=== PATIENT | male | born 1955 | race African-American/Black ===

== ENCOUNTER 2016-09-07 09:59 | Emergency (ER) | payer OTHER ==
[~2016-09-07] VITALS: Ht 188 cm; Wt 133.8 kg
[~2016-09-07 09:59] MED LIST: ASPI81TA85 PO; ATOR1TAB18 PO; DULO30CA PO; INSUHUMDS SC; Insulin SC; LISI10TA4 PO
[2016-09-07] MEDS ORDERED: ACETAMINOPHEN 325 MG TAB PO ONE (11:30)
[2016-09-07] MEDS ORDERED: NORCOTAB PO (12:36)
[2016-09-07] MEDS ORDERED: NORCO 5/325MG TABLET (BULK FOR ED) PO ONE (12:45)
[2016-09-07 13:08] VITALS: BP 133/62
--- NOTE | 2016-09-07 13:22 | REP ---
Right hip: Two views. History: Acute hip pain. Comparison pelvic view is from April 07, 2013. Findings: The right femoral head is smooth and rounded. There is some inferior acetabular spurring indicating mild right hip osteoarthritis. Bones, joints, and soft tissues are otherwise unremarkable. No acute abnormality seen. Impression: Mild acetabular spurring consistent with osteoarthritis. No acute abnormality. Signed by Tony Demarco MD 09/07/2016 01:26 P
== END 2016-09-07 13:11 | disposition home or self-care (01) ==
LOC: EDBD 09:59 → M ED 12:13
DX: M25.551 Pain in right hip (principal); E11.40 Type 2 diabetes mellitus with diabetic neuropathy, unspecified; I10 Essential (primary) hypertension; E66.9 Obesity, unspecified; G89.29 Other chronic pain; M54.5 Low back pain; M19.90 Unspecified osteoarthritis, unspecified site; Z82.49 Family history of ischemic heart disease and other diseases of the circulatory system; Z83.49 Family history of other endocrine, nutritional and metabolic diseases; Z82.3 Family history of stroke; Z79.82 Long term (current) use of aspirin; Z79.4 Long term (current) use of insulin; Z79.899 Other long term (current) drug therapy

== ENCOUNTER → 2016-10-04 | Outpatient (REF) | payer OTHER ==
[~2016-10-04] MED LIST changes: +NORCOTAB PO
[2016-10-04 14:46] LABS: ANION GAP 7 MEQ/L (8-16); BLOOD UREA NITROGEN 21 MG/DL (7-18); CALCIUM LEVEL 9.1 MG/DL (8.8-10.2); CARBON DIOXIDE LEVEL 26 MEQ/L (21-32); CHLORIDE LEVEL 109 MEQ/L (98-107); CREATININE FOR GFR 1.33 MG/DL (0.70-1.30); GLOMERULAR FILTRATION RATE > 60.0 (>49); GLUCOSE, FASTING 94 MG/DL (80-110); POTASSIUM SERUM 4.3 MEQ/L (3.5-5.1); SODIUM LEVEL 142 MEQ/L (136-145)
== END ==
LOC: M LAB REF 13:20
PROVIDERS: ATTEND Nurse Practitioner Family
DX: E11.9 Type 2 diabetes mellitus without complications (principal)

== ENCOUNTER 2016-10-11 21:12 | Emergency (ER) | payer OTHER ==
[~2016-10-11] VITALS: Ht 188 cm; Wt 138.3 kg
[2016-10-11] MEDS ORDERED: TETANUS/DIPHTHERIA TOX ADSORB ADULT 0.5ML SYR/VIAL (90714) IM ONE (21:45)
--- NOTE | 2016-10-11 22:25 | REP ---
Clinical: Trauma . Findings: Age-related atrophy and microvascular ischemic changes are appreciated. The ventricles and sulci are symmetric. Sams-white differentiation is maintained. There is no evidence for acute intracranial hemorrhage, mass/mass effect, pathology or infarction. No extra-axial fluid collection. Calvarium is intact. Paranasal sinuses and mastoid air cells are clear. A small scalp hematoma is identified along the high right posterior vertex. No underlying fracture. Impression: Age related atrophy and microvascular ischemic changes. No acute intracranial hemorrhage, infarction, trauma/injury or mass/mass effect. Very small right posterior scalp hematoma. Signed by Jose M Fisher MD 10/11/2016 10:18 P
[2016-10-11 23:38] VITALS: BP 91/54
== END 2016-10-11 23:40 | disposition home or self-care (01) ==
LOC: M ED 21:47
DX: S40.811A Abrasion of right upper arm, initial encounter (principal); W19.XXXA Unspecified fall, initial encounter; Y92.89 Other specified places as the place of occurrence of the external cause; Y93.89 Activity, other specified; Y99.8 Other external cause status; I10 Essential (primary) hypertension; E11.9 Type 2 diabetes mellitus without complications; I25.10 Atherosclerotic heart disease of native coronary artery without angina pectoris; M19.90 Unspecified osteoarthritis, unspecified site; G89.29 Other chronic pain; F17.200 Nicotine dependence, unspecified, uncomplicated; Z79.4 Long term (current) use of insulin; Z79.82 Long term (current) use of aspirin; Z79.899 Other long term (current) drug therapy

== ENCOUNTER → 2016-12-11 | Outpatient (REF) | payer OTHER ==
[~2016-12-11] MED LIST changes: -ATOR1TAB18 PO; +ATOR80TA59 PO
[2016-12-11 13:51] LABS: ANION GAP 4 MEQ/L (8-16); BLOOD UREA NITROGEN 16 MG/DL (7-18); CALCIUM LEVEL 8.9 MG/DL (8.8-10.2); CARBON DIOXIDE LEVEL 29 MEQ/L (21-32); CHLORIDE LEVEL 107 MEQ/L (98-107); CHOLESTEROL LEVEL 188 MG/DL (<200); CREATININE FOR GFR 1.37 MG/DL (0.70-1.30); GLOMERULAR FILTRATION RATE > 60.0 (>49); GLUCOSE, FASTING 86 MG/DL (80-110); POTASSIUM SERUM 4.7 MEQ/L (3.5-5.1); SODIUM LEVEL 140 MEQ/L (136-145); TRIGLYCERIDES LEVEL 178 MG/DL (<150)
== END ==
LOC: M LAB REF 12:06
PROVIDERS: ATTEND Nurse Practitioner Family
DX: E78.5 Hyperlipidemia, unspecified (principal); E55.9 Vitamin D deficiency, unspecified; E11.9 Type 2 diabetes mellitus without complications

== ENCOUNTER → 2017-01-04 | Outpatient (CLI) | payer OTHER ==
--- NOTE | 2017-01-07 09:43 | REP ---
MRI LEFT HIP: TECHNIQUE: Coronal T1, STIR through the pelvis, T2 fat sat, left hip all three planes, axial oblique proton density fat sat left hip. There is no evidence of occult fracture with no significant abnormal marrow signal. There is no avascular necrosis. There is mild subchondral marrow edema in the left acetabulum due to arthritic changes at the left hip joint. There is diffuse chondromalacia. There is acetabular spurring. There is a tear of the superior labrum as well as the superior aspect of the anterior labrum. There is a small joint effusion. There is no paralabral cyst. Other surrounding soft tissue structures demonstrate no abnormal signal. The visualized intrapelvic structures are unremarkable. IMPRESSION: Arthritic changes of a moderate degree at the left hip joint with a small joint effusion. There is chondromalacia with subchondral marrow edema in the acetabulum. There is a somewhat complex tear of the superior left hip labrum as well as a tear of the superior aspect of the anterior labrum. Signed by Nito Sams MD 01/07/2017 12:49 P
== END ==
LOC: M RAD 16:32
PROVIDERS: ATTEND Physical Medicine & Rehabilitation
DX: M16.12 Unilateral primary osteoarthritis, left hip (principal)

== ENCOUNTER → 2017-03-13 | Outpatient (REF) | payer OTHER ==
[2017-03-13 20:25] LABS: ANION GAP 6 MEQ/L (8-16); BLOOD UREA NITROGEN 19 MG/DL (7-18); CALCIUM LEVEL 9.1 MG/DL (8.8-10.2); CARBON DIOXIDE LEVEL 25 MEQ/L (21-32); CHLORIDE LEVEL 109 MEQ/L (98-107); CREATININE FOR GFR 1.37 MG/DL (0.70-1.30); GLOMERULAR FILTRATION RATE > 60.0 (>49); GLUCOSE, FASTING 103 MG/DL (80-110); SODIUM LEVEL 140 MEQ/L (136-145)
[2017-03-13 20:44] LABS: POTASSIUM SERUM 4.7 MEQ/L (3.5-5.1)
== END ==
LOC: M LAB REF 17:41
PROVIDERS: ATTEND Nurse Practitioner Family
DX: E11.9 Type 2 diabetes mellitus without complications (principal)

== ENCOUNTER 2018-06-05 14:36 | Emergency (ER) | payer MEDICARE, MEDICAID ==
[~2018-06-05] VITALS: Ht 188 cm; Wt 127.3 kg
[2018-06-05 14:37] VITALS: BP 138/73
[2018-06-05] MEDS ORDERED: MELO15TA28 PO (15:26)
[2018-06-05] MEDS ORDERED: CLEO300C2 PO (15:26)
[2018-06-05] MEDS ORDERED: LIDOCAINE VISCOUS 2% SOLN 15ML UDC MT ONE (15:30)
[2018-06-05] MEDS ORDERED: CLINDAMYCIN 150 MG CAP PO ONE (15:30)
[2018-06-05] MEDS ORDERED: ACETAMINOPHEN 325 MG TAB PO ONE (15:30)
[2018-06-05] MEDS ORDERED: NAPROXEN 250 MG TAB PO ONE (15:30)
== END 2018-06-05 15:40 | disposition home or self-care (01) ==
LOC: M ED 14:36
DX: K08.89 Other specified disorders of teeth and supporting structures (principal); K04.7 Periapical abscess without sinus; E11.9 Type 2 diabetes mellitus without complications; M19.90 Unspecified osteoarthritis, unspecified site; E78.00 Pure hypercholesterolemia, unspecified; Z72.0 Tobacco use; Z79.82 Long term (current) use of aspirin

== ENCOUNTER → 2019-03-03 | Outpatient (REF) | payer MEDICARE, MEDICAID ==
[~2019-03-03] MED LIST changes: +CLEO300C2 PO; -DULO30CA PO; +DULO30CA9 PO; +HYDR-3715 PO; +MELO15TA28 PO; -NORCOTAB PO
[2019-03-03 17:36] LABS: HEMOGLOBIN A1c 5.8 %
[2019-03-03 17:52] LABS: BASO % 0.6 % (0.0-1.0); EOS # 0.1 10^3/uL (0.0-0.5); EOS % 1.5 % (0.0-3.0); HEMATOCRIT 49.9 % (42.0-52.0); HEMOGLOBIN 16.6 g/dl (13.5-17.5); LYMPH # 2.5 10^3/uL (1.5-5.0); LYMPH % 38.2 % (24.0-44.0); MEAN CORPUSCULAR HEMOGLOBIN 31.6 pg (27.0-33.0); MEAN CORPUSCULAR HGB CONC 33.3 g/dl (32.0-36.5); MEAN CORPUSCULAR VOLUME 94.9 fl (80.0-96.0); MONO # 0.4 10^3/uL (0.0-0.8); MONO % 6.3 % (0.0-5.0); NEUTROPHILS # 3.5 10^3/uL (1.5-8.5); NEUTROPHILS % 53.1 % (36.0-66.0); PLATELET COUNT, AUTOMATED 152 10^3/uL (150-450); RED BLOOD COUNT 5.26 10^6/uL (4.30-6.10); WHITE BLOOD COUNT 6.5 10^3/uL (4.0-10.0)
[2019-03-03 18:00] LABS: ALBUMIN 3.8 GM/DL (3.2-5.2); ALT/SGPT 19 U/L (12-78); BILIRUBIN,TOTAL 0.5 MG/DL (0.2-1.0); BLOOD UREA NITROGEN 14 MG/DL (7-18); CALCIUM LEVEL 9.4 MG/DL (8.8-10.2); CARBON DIOXIDE LEVEL 28 MEQ/L (21-32); CHLORIDE LEVEL 109 MEQ/L (98-107); CHOLESTEROL LEVEL 232 MG/DL (<200); CHOLESTEROL RISK RATIO 4.461 (<5); CREATININE FOR GFR 1.25 MG/DL (0.70-1.30); GLOMERULAR FILTRATION RATE > 60.0 (>49); GLUCOSE, FASTING 78 MG/DL (70-100); HDL CHOLESTEROL 52 MG/DL (>40); LDL CHOLESTEROL 158 MG/DL (<100); NON-HDL-C 180 MG/DL; POTASSIUM SERUM 4.6 MEQ/L (3.5-5.1); SODIUM LEVEL 143 MEQ/L (136-145); TOTAL 25(OH) VITAMIN D 16.9 NG/ML (30.0-100.0); TOTAL PROTEIN 7.8 GM/DL (6.4-8.2); TRIGLYCERIDES LEVEL 109 MG/DL (<150)
== END ==
LOC: M LAB REF 16:13
PROVIDERS: ATTEND Nurse Practitioner Family
DX: Z00.01 Encounter for general adult medical examination with abnormal findings (principal); Z79.899 Other long term (current) drug therapy; Z79.82 Long term (current) use of aspirin

== ENCOUNTER → 2020-05-30 | Outpatient (REF) | payer MEDICARE, MEDICAID ==
[~2020-05-30] MED LIST changes: -ASPI81TA85 PO; +ASPI81TA86 PO
[2020-05-30 13:37] LABS: ALBUMIN 3.8 GM/DL (3.2-5.2); ALT/SGPT 33 U/L (12-78); BILIRUBIN,TOTAL 0.8 MG/DL (0.2-1.0); BLOOD UREA NITROGEN 18 MG/DL (7-18); CALCIUM LEVEL 9.2 MG/DL (8.8-10.2); CARBON DIOXIDE LEVEL 24 MEQ/L (21-32); CHLORIDE LEVEL 109 MEQ/L (98-107); CHOLESTEROL LEVEL 280 MG/DL (<200); CHOLESTEROL RISK RATIO 5.957 (<5); GLOMERULAR FILTRATION RATE > 60.0 (>49); GLUCOSE, FASTING 114 MG/DL (70-100); HDL CHOLESTEROL 47 MG/DL (>40); LDL CHOLESTEROL 200 MG/DL (<100); NON-HDL-C 233 MG/DL; POTASSIUM SERUM 4.5 MEQ/L (3.5-5.1); SODIUM LEVEL 139 MEQ/L (136-145); TOTAL PROTEIN 7.8 GM/DL (6.4-8.2); TRIGLYCERIDES LEVEL 167 MG/DL (<150)
== END ==
LOC: M LAB REF 12:22
PROVIDERS: ATTEND Physician Assistant
DX: E11.9 Type 2 diabetes mellitus without complications (principal)

== ENCOUNTER → 2020-09-16 | Outpatient (REF) | payer MEDICARE, MEDICAID ==
[~2020-09-16] MED LIST changes: +LISI10TA22 PO; -LISI10TA4 PO
[2020-09-16 17:48] LABS: ALBUMIN 3.8 GM/DL (3.2-5.2); ALT/SGPT 39 U/L (12-78); BILIRUBIN,TOTAL 0.4 MG/DL (0.2-1.0); BLOOD UREA NITROGEN 18 MG/DL (7-18); CALCIUM LEVEL 9.2 MG/DL (8.8-10.2); CARBON DIOXIDE LEVEL 24 MEQ/L (21-32); CHLORIDE LEVEL 105 MEQ/L (98-107); CHOLESTEROL LEVEL 304 MG/DL (<200); CHOLESTEROL RISK RATIO 6.909 (<5); CREATININE FOR GFR 1.33 MG/DL (0.70-1.30); GLOMERULAR FILTRATION RATE > 60.0 (>49); GLUCOSE, FASTING 153 MG/DL (70-100); HDL CHOLESTEROL 44 MG/DL (>40); LDL CHOLESTEROL 208 MG/DL (<100); NON-HDL-C 260 MG/DL; SODIUM LEVEL 136 MEQ/L (136-145); TOTAL PROTEIN 7.9 GM/DL (6.4-8.2); TRIGLYCERIDES LEVEL 262 MG/DL (<150)
[2020-09-16 18:27] LABS: HEMOGLOBIN A1c 6.7 %
== END ==
LOC: M LAB REF 16:35
PROVIDERS: ATTEND Family Medicine Addiction Medicine
DX: E11.9 Type 2 diabetes mellitus without complications (principal)

== ENCOUNTER → 2020-10-06 | Outpatient (CLI) | payer MEDICARE, MEDICAID ==
--- NOTE | 2020-10-06 09:50 | REP ---
INDICATION: PAIN. COMPARISON: 09/07/2016 two views of the right hip only and 06/18/2013 two views of the left hip only TECHNIQUE: AP pelvis AP frog-lateral bilateral hip FINDINGS: AP pelvis: There is asymmetric bilateral hip joint space narrowing left much greater than right. There is no acute fracture, dislocation, or subluxation. Right hip: There is mild to moderate asymmetric hip joint space narrowing increased somewhat from the prior exam. There is no acute fracture, dislocation, or subluxation. There is no buttressing. Left hip: There is severe asymmetric hip joint space narrowing with buttressing and prominent marginal osteophytosis. These chronic changes have increased in severity compared to the prior exam. IMPRESSION: Bilateral chronic changes as described above. <Electronically signed by Heron Cisse > 10/06/20 0916
--- NOTE | 2020-10-06 10:44 | REP ---
INDICATION: PAIN. COMPARISON: None. TECHNIQUE: Four views right wrist. FINDINGS: There is no acute fracture or dislocation. There is mild narrowing and spurring at the distal radioulnar joint. Scattered amorphous soft tissue calcifications are seen both anteriorly and posteriorly. IMPRESSION: Arthritic changes distal radioulnar joint. Non-specific ill-defined soft tissue calcifications both anteriorly and posteriorly. <Electronically signed by Nito Sams > 10/06/20 [id number]
== END ==
LOC: M SOG 08:54
PROVIDERS: ATTEND Orthopaedic Surgery Adult Reconstructive Orthopaedic Surgery
DX: M25.552 Pain in left hip (principal); M25.551 Pain in right hip

== ENCOUNTER → 2020-12-02 | Outpatient (CLI) | payer MEDICAID, MEDICARE ==
[~2020-12-02] MED LIST changes: +BUPIVACAINE HCL 0.5% 10ML VIAL As Ordered ONE; +ISOVUE-300 61% 50ML VIAL As Ordered ONE; +methylPREDNISolone 80MG/ML SUSP 1ML VIAL (J1040) As Ordered ONE
--- NOTE | 2020-12-02 16:47 | REP ---
INDICATION: LEFT HIP OSTEOARTHRITIS. COMPARISON: None. TECHNIQUE: The procedure was performed under the direct supervision of Dr. Sams. The benefits and risks including but not limited to pain infection bleeding and anaphylaxis were explained to the patient and informed consent was obtained. The left femoral neck was localized using fluoroscopic guidance. The skin was prepped and draped in a sterile fashion. 1% lidocaine was used as a local anesthetic. Using fluoroscopic guidance, and last image hold technology, a 22 gauge spinal needle was inserted and advanced to the femoral neck. 1 cc of Isovue-300 was injected to verify placement. 4 cc of a solution containing 3 cc of 0.5% Marcaine and 1 cc of Depo-Medrol 80 mg. the needle was then removed. The patient tolerated the procedure well and there were no immediate complications. Less than 6 seconds of fluoroscopy time was utilized for this procedure. FINDINGS: None IMPRESSION: Fluoro guidance for left hip injection. <Electronically signed by David Webber > 12/02/20 1621 <Electronically signed by Nito Sams > 12/02/20 [id number]
== END ==
LOC: M RADPRO 10:31
PROVIDERS: ATTEND Orthopaedic Surgery Adult Reconstructive Orthopaedic Surgery
DX: M65.4 Radial styloid tenosynovitis [de Quervain] (principal)
CPT/HCPCS: 20610; 77002; J1040; Q9967

== ENCOUNTER → 2021-06-30 | Outpatient (CLI) | payer MEDICARE ==
[~2021-06-30] MED LIST changes: -BUPIVACAINE HCL 0.5% 10ML VIAL As Ordered ONE; +ELIQ5TAB PO; -ISOVUE-300 61% 50ML VIAL As Ordered ONE; +PROHANCE 279.3MG/ML 15ML VIAL ONE; +PROHANCE 279.3MG/ML 5ML VIAL ONE; -methylPREDNISolone 80MG/ML SUSP 1ML VIAL (J1040) As Ordered ONE
== END ==
LOC: M PLAIMG 15:01
PROVIDERS: ATTEND Family Medicine
DX: K76.89 Other specified diseases of liver (principal); K76.0 Fatty (change of) liver, not elsewhere classified; K80.50 Calculus of bile duct without cholangitis or cholecystitis without obstruction; N28.1 Cyst of kidney, acquired
CPT/HCPCS: 74183; A9576

== ENCOUNTER → 2021-08-15 | Outpatient (REF) | payer MEDICARE ==
[~2021-08-15] MED LIST changes: -PROHANCE 279.3MG/ML 15ML VIAL ONE; -PROHANCE 279.3MG/ML 5ML VIAL ONE
== END ==
LOC: M WUC 12:41
PROVIDERS: ATTEND Physician Assistant
DX: L02.214 Cutaneous abscess of groin (principal)

== ENCOUNTER → 2021-10-18 | Outpatient (CLI) | payer MEDICARE ==
[2021-10-18 11:33] LABS: HEMOGLOBIN A1c 11.8 %
[2021-10-18 11:44] LABS: BLOOD UREA NITROGEN 18 MG/DL (7-18); CALCIUM LEVEL 9.4 MG/DL (8.8-10.2); CARBON DIOXIDE LEVEL 25 MEQ/L (21-32); CHLORIDE LEVEL 109 MEQ/L (98-107); CHOLESTEROL LEVEL 155 MG/DL (<200); CHOLESTEROL RISK RATIO 3.229 (<5); CREATININE FOR GFR 1.09 MG/DL (0.70-1.30); GLOMERULAR FILTRATION RATE > 60.0 (>49); GLUCOSE, FASTING 251 MG/DL (70-100); HDL CHOLESTEROL 48 MG/DL (>40); LDL CHOLESTEROL 93 MG/DL (<100); NON-HDL-C 107 MG/DL; POTASSIUM SERUM 4.6 MEQ/L (3.5-5.1); SODIUM LEVEL 138 MEQ/L (136-145); TRIGLYCERIDES LEVEL 71 MG/DL (<150)
[2021-10-18 11:51] LABS: MALB URINE SIEMENS 25.6 MG/L; MAU/CREAT RATIO 23.9 MCG/MG (0.0-30.0)
== END ==
LOC: M LAB 10:03
PROVIDERS: ATTEND Family Medicine
DX: E11.22 Type 2 diabetes mellitus with diabetic chronic kidney disease (principal); N18.2 Chronic kidney disease, stage 2 (mild); E78.5 Hyperlipidemia, unspecified

== ENCOUNTER → 2021-12-21 | Outpatient (CLI) | payer MEDICARE ==
[2021-12-21 16:49] LABS: C REACTIVE PROTEIN QUANTITATIV 0.47 MG/DL (0.00-0.30); RHEUMATOID FACTOR QUANT < 10.0 IU/ML (<15.0); URIC ACID 4.3 MG/DL (3.5-7.2)
[2021-12-27 15:09] LABS: ANTI DOUBLE STRAND-DNA AB 4 IU/mL (0-9); ANTINUCLEAR ANTIBODIES DIRECT Positive (Negative); RNP ANTIBODIES >8.0 AI (0.0-0.9); SJOGREN'S ANTI SS-A 0.2 AI (0.0-0.9); SJOGREN'S ANTI SS-B <0.2 AI (0.0-0.9); SMITH ANTIBODIES <0.2 AI (0.0-0.9)
[2021-12-27 16:10] LABS: CYCLIC CITRULLINATED PEPTIDE 8 units (0-19)
[2021-12-29 08:09] LABS: DRVV SCREEN 60.4 SEC
[2021-12-29 08:14] LABS: PTT LUPUS TYPE ANTICOAG SCREEN 1.6 (0-1.2)
[2021-12-29 08:22] LABS: DRVV CONFIRM 43.1 SEC; LUPUS CONFIRM RATIO 1.1
[2021-12-29 08:31] LABS: NORMALIZED RATIO 1.45 (0.00-1.20)
[2021-12-31 14:07] LABS: HEXAGONAL PHASE PHOSPHOLIPID 4 sec (0-11)
== END ==
LOC: M WUC 11:09
PROVIDERS: ATTEND Internal Medicine Rheumatology
DX: R76.8 Other specified abnormal immunological findings in serum (principal)

== ENCOUNTER → 2022-01-04 | Outpatient (REF) | payer MEDICARE ==
[2022-01-04 17:46] LABS: HEMATOCRIT 49.3 % (42.0-52.0); MEAN CORPUSCULAR HEMOGLOBIN 29.4 pg (27.0-33.0); MEAN CORPUSCULAR HGB CONC 32.5 g/dl (32.0-36.5); MEAN CORPUSCULAR VOLUME 90.6 fl (80.0-96.0); PLATELET COUNT, AUTOMATED 128 10^3/uL (150-450); RED BLOOD COUNT 5.44 10^6/uL (4.30-6.10); WHITE BLOOD COUNT 5.5 10^3/uL (4.0-10.0)
[2022-01-04 18:36] LABS: ALBUMIN 3.5 GM/DL (3.2-5.2); BILIRUBIN,TOTAL 0.4 MG/DL (0.2-1.0); CALCIUM LEVEL 9.2 MG/DL (8.8-10.2); CHOLESTEROL RISK RATIO 3.363 (<5); CREATININE FOR GFR 1.31 MG/DL (0.70-1.30); GLOMERULAR FILTRATION RATE 58.5 (>49); POTASSIUM SERUM 4.7 MEQ/L (3.5-5.1); TOTAL PROTEIN 7.4 GM/DL (6.4-8.2)
[2022-01-04 20:43] LABS: HEMOGLOBIN A1c 11.6 %
== END ==
LOC: M SFHCCLAY 11:05
PROVIDERS: ATTEND Nurse Practitioner Family
DX: E78.5 Hyperlipidemia, unspecified (principal); K76.89 Other specified diseases of liver; E11.9 Type 2 diabetes mellitus without complications; N18.2 Chronic kidney disease, stage 2 (mild)

== ENCOUNTER → 2022-05-30 | Outpatient (REF) | payer MEDICARE ==
[2022-05-30 17:20] LABS: HEMATOCRIT 46.8 % (42.0-52.0); HEMOGLOBIN 15.2 g/dl (13.5-17.5); MEAN CORPUSCULAR HEMOGLOBIN 29.5 pg (27.0-33.0); MEAN CORPUSCULAR HGB CONC 32.5 g/dl (32.0-36.5); MEAN CORPUSCULAR VOLUME 90.9 fl (80.0-96.0); PLATELET COUNT, AUTOMATED 169 10^3/uL (150-450); RED BLOOD COUNT 5.15 10^6/uL (4.30-6.10); WHITE BLOOD COUNT 7.1 10^3/uL (4.0-10.0)
[2022-05-30 18:18] LABS: HEMOGLOBIN A1c 11.5 % (4.0-6.0)
[2022-05-30 21:21] LABS: BLOOD UREA NITROGEN 16 MG/DL (9-23); CARBON DIOXIDE LEVEL 24 MMOL/L (20-31); CHLORIDE LEVEL 101 MMOL/L (98-107); CHOLESTEROL LEVEL 141 MG/DL (<200); CHOLESTEROL RISK RATIO 3.01 (<5); GLOMERULAR FILTRATION RATE > 60.0 (>49); GLUCOSE, FASTING 436 MG/DL (74-106); HDL CHOLESTEROL 46.8 MG/DL (>40); NON-HDL-C 94 MG/DL; POTASSIUM SERUM 5.1 MMOL/L (3.5-5.1); SODIUM LEVEL 135 MMOL/L (136-145); TRIGLYCERIDES LEVEL 156 MG/DL (<150)
== END ==
LOC: M SFHCCLAY 11:31
PROVIDERS: ATTEND Nurse Practitioner Family
DX: N18.2 Chronic kidney disease, stage 2 (mild) (principal); E78.5 Hyperlipidemia, unspecified; E11.9 Type 2 diabetes mellitus without complications

== ENCOUNTER → 2022-10-19 | Outpatient (REF) | payer MEDICARE ==
[2022-10-19 17:47] LABS: ALBUMIN 3.8 G/DL (3.2-5.2); ALKALINE PHOSPHATASE 69 U/L (46-116); ALT/SGPT 20 U/L (7.0-40); AST/SGOT 18 U/L (<34); BILIRUBIN,TOTAL 0.5 MG/DL (0.3-1.2); BLOOD UREA NITROGEN 20 MG/DL (9-23); CALCIUM LEVEL 9.6 MG/DL (8.3-10.6); CARBON DIOXIDE LEVEL 22 MMOL/L (20-31); CHLORIDE LEVEL 104 MMOL/L (98-107); CHOLESTEROL LEVEL 125 MG/DL (<200); CHOLESTEROL RISK RATIO 3.11 (<5); CREATININE FOR GFR 1.03 MG/DL (0.70-1.30); GLOMERULAR FILTRATION RATE > 60.0 (>49); GLUCOSE, FASTING 250 MG/DL (74-106); HDL CHOLESTEROL 40.1 MG/DL (>40); LDL CHOLESTEROL 62.5 MG/DL (<100); NON-HDL-C 84.9 MG/DL; POTASSIUM SERUM 4.5 MMOL/L (3.5-5.1); SODIUM LEVEL 137 MMOL/L (136-145); TOTAL 25(OH) VITAMIN D 85.6 NG/ML (20.0-100.0); TOTAL PROTEIN 7.4 G/DL (5.7-8.2); TRIGLYCERIDES LEVEL 112 MG/DL (<150)
[2022-10-19 17:56] LABS: HEMOGLOBIN A1c 9.8 % (4.0-6.0)
== END ==
LOC: M SFHCCLAY 13:47
PROVIDERS: ATTEND Nurse Practitioner Family
DX: N18.2 Chronic kidney disease, stage 2 (mild) (principal); E11.9 Type 2 diabetes mellitus without complications; E78.5 Hyperlipidemia, unspecified; E55.9 Vitamin D deficiency, unspecified; Z79.899 Other long term (current) drug therapy

== ENCOUNTER → 2023-03-26 | Outpatient (CLI) | payer MEDICARE, MEDICAID | LOC: M RAD 09:27 | PROVIDERS: ATTEND Nurse Practitioner Family | DX: Z12.2 Encounter for screening for malignant neoplasm of respiratory organs (principal); F17.210 Nicotine dependence, cigarettes, uncomplicated ==

== ENCOUNTER 2023-09-11 06:54 | Day surgery (SDC) | payer MEDICARE, MEDICAID ==
[~2023-09-11] VITALS: Ht 188 cm; Wt 122.5 kg
[~2023-09-11 06:54] MED LIST changes: +ATOR40TA75 PO; +ERGO500029 PO; +INSU100I24 SQ; +LANTINJ4 SQ; +METF750T36 PO
[2023-09-11] MEDS ORDERED: propofoL 200 MG/20 ML VIAL As Ordered ONE (07:17)
[2023-09-11] MEDS: NS 1,000 ML IV ONE (07:27)
[2023-09-11] MEDS ORDERED: LIDOCAINE 2% INJ 100 MG/5 ML SYRINGE As Ordered ONE (07:35)
[2023-09-11] MEDS ORDERED: GLYCOPYRROLATE INJ 0.2 MG/ML 2 ML VIAL As Ordered ONE (08:51)
[2023-09-11 09:42] VITALS: BP 138/83; O2SAT 96
== END 2023-09-11 10:22 | disposition home or self-care (01) ==
LOC: M OPP 06:54
PROVIDERS: ATTEND Surgery
DX: R19.5 Other fecal abnormalities (principal); D12.6 Benign neoplasm of colon, unspecified; K64.9 Unspecified hemorrhoids; K57.30 Diverticulosis of large intestine without perforation or abscess without bleeding; Z80.0 Family history of malignant neoplasm of digestive organs; E11.9 Type 2 diabetes mellitus without complications; F17.200 Nicotine dependence, unspecified, uncomplicated; Z79.4 Long term (current) use of insulin; Z79.02 Long term (current) use of antithrombotics/antiplatelets

== ENCOUNTER → 2024-07-08 | Outpatient (REF) | payer MEDICARE | LOC: M SFHCCLAY 15:00 | PROVIDERS: ATTEND Nurse Practitioner Family | DX: Z00.00 Encounter for general adult medical examination without abnormal findings (principal); N52.9 Male erectile dysfunction, unspecified; N18.2 Chronic kidney disease, stage 2 (mild); E11.9 Type 2 diabetes mellitus without complications; E78.5 Hyperlipidemia, unspecified; E55.9 Vitamin D deficiency, unspecified; K76.89 Other specified diseases of liver; R76.8 Other specified abnormal immunological findings in serum; M15.9 Polyosteoarthritis, unspecified; Z72.0 Tobacco use ==

== ENCOUNTER → 2024-08-04 | Outpatient (CLI) | payer MEDICARE ==
[2024-08-04 14:12] LABS: HEMOGLOBIN A1c 13.4 % (4.0-6.0)
[2024-08-04 14:41] LABS: ALBUMIN 3.7 G/DL (3.2-5.2); ALKALINE PHOSPHATASE 66 U/L (40-129); ALT/SGPT 17 U/L (7.0-40); AST/SGOT 11 U/L (<34); BILIRUBIN,TOTAL 0.5 MG/DL (0.3-1.2); BLOOD UREA NITROGEN 12 MG/DL (9-23); CALCIUM LEVEL 9.6 MG/DL (8.3-10.6); CARBON DIOXIDE LEVEL 26 MMOL/L (20-31); CHLORIDE LEVEL 106 MMOL/L (98-107); CHOLESTEROL LEVEL 141 MG/DL (<200); CHOLESTEROL RISK RATIO 2.93 (<5); CREATININE FOR GFR 1.06 MG/DL (0.70-1.30); GLOMERULAR FILTRATION RATE > 60.0 (>49); GLUCOSE, FASTING 377 MG/DL (74-106); HDL CHOLESTEROL 48.1 MG/DL (>40); LDL CHOLESTEROL 66.3 MG/DL (<100); NON-HDL-C 92.9 MG/DL; POTASSIUM SERUM 4.8 MMOL/L (3.5-5.1); SODIUM LEVEL 140 MMOL/L (136-145); TOTAL PROTEIN 7.2 G/DL (5.7-8.2); TRIGLYCERIDES LEVEL 133 MG/DL (<150)
[2024-08-04 14:43] LABS: FREE T4 0.97 NG/DL (0.89-1.76)
[2024-08-04 14:44] LABS: THYROID STIMULATING HORMONE 0.963 uIU/ML (0.55-4.78)
== END ==
LOC: M RAD 12:13
PROVIDERS: ATTEND Nurse Practitioner Family
DX: Z00.00 Encounter for general adult medical examination without abnormal findings (principal); Z12.2 Encounter for screening for malignant neoplasm of respiratory organs; N52.9 Male erectile dysfunction, unspecified; N18.2 Chronic kidney disease, stage 2 (mild); E11.22 Type 2 diabetes mellitus with diabetic chronic kidney disease; E78.5 Hyperlipidemia, unspecified; E55.9 Vitamin D deficiency, unspecified; K76.89 Other specified diseases of liver; M15.9 Polyosteoarthritis, unspecified; R76.8 Other specified abnormal immunological findings in serum; F17.210 Nicotine dependence, cigarettes, uncomplicated; I25.10 Atherosclerotic heart disease of native coronary artery without angina pectoris; N62 Hypertrophy of breast; N28.1 Cyst of kidney, acquired

== ENCOUNTER 2024-12-24 13:14 | Emergency (ER) | payer MEDICARE ==
[~2024-12-24] VITALS: Ht 188 cm; Wt 104.5 kg
[~2024-12-24 13:14] MED LIST changes: +TIRZ7.5P; +TRAM50TA2 PO; +VITA200032 PO
[2024-12-24] MEDS: LIDOCAINE 2% MDV 20 ML VIAL SC ONE (14:04)
[2024-12-24] MEDS ORDERED: BACI500O8 TOP (15:09)
[2024-12-24 15:15] VITALS: BP 137/76; TEMP 97.1; O2SAT 99
== END 2024-12-24 15:21 | disposition home or self-care (01) ==
LOC: M ED 13:14 → EDBD 13:14 → M ED 15:21
DX: S81.811A Laceration without foreign body, right lower leg, initial encounter (principal); W01.198A Fall on same level from slipping, tripping and stumbling with subsequent striking against other object, initial encounter; E11.9 Type 2 diabetes mellitus without complications; M54.50 Low back pain, unspecified; Y92.009 Unspecified place in unspecified non-institutional (private) residence as the place of occurrence of the external cause; Y93.89 Activity, other specified; Y99.9 Unspecified external cause status; Z87.442 Personal history of urinary calculi; Z86.711 Personal history of pulmonary embolism; Z79.02 Long term (current) use of antithrombotics/antiplatelets; Z79.899 Other long term (current) drug therapy

== ENCOUNTER 2025-01-04 13:23 | Emergency (ER) | payer MEDICARE ==
[~2025-01-04] VITALS: Ht 188 cm; Wt 103.2 kg
[~2025-01-04 13:23] MED LIST changes: +BACI500O8 TOP
[2025-01-04 13:25] VITALS: BP 113/69; TEMP 97.6; O2SAT 99
[2025-01-04] MEDS ORDERED: CEPH500C PO (16:31)
== END 2025-01-04 16:36 | disposition home or self-care (01) ==
LOC: M ED 13:23
DX: Z48.02 Encounter for removal of sutures (principal); F17.200 Nicotine dependence, unspecified, uncomplicated; Z79.02 Long term (current) use of antithrombotics/antiplatelets; Z79.899 Other long term (current) drug therapy; Z79.2 Long term (current) use of antibiotics